=== PATIENT | female | born 1950 | race Caucasian/White ===

== ENCOUNTER → 2018-01-07 | Outpatient (CLI) | payer MEDICARE ==
[~2018-01-07] MED LIST: AMITRIPTYLINE H25 MG PO; LISINOPRIL10 MG PO; OXYBUTYNIN CHLOR5 MG PO; SIMVASTATIN40 MG PO; [UNRECOGNIZED DRUG - OTHER] PO
[2018-01-07 13:35] LABS: BASOPHILS # (AUTO) 0.1 (0.0-0.1); BASOPHILS % 0.7 % (0.0-1.0); EOSINOPHILS # (AUTO) 0.1 (0.0-0.4); EOSINOPHILS % 1.2 % (0.0-6.0); HEMOGLOBIN 11.1 g/dL (12.0-16.0); LYMPHOCYTES # (AUTO) 1.9 (1.0-3.2); LYMPHOCYTES % 23.5 % (18.0-39.1); MEAN CORPUSCULAR HEMOGLOBIN 29.1 pg (28-32); MEAN CORPUSCULAR HGB CONC 33.6 g/dL (31-35); MEAN CORPUSCULAR VOLUME 86.6 fL (81-99); MONOCYTES # (AUTO) 0.4 (0.2-0.8); MONOCYTES % 5.5 % (4.4-11.3); NEUTROPHILS # (AUTO) 5.5 (2.1-6.9); NEUTROPHILS % 68.6 % (38.7-80.0); PLATELET COUNT 193 x10e3/uL (140-360); RED BLOOD COUNT 3.81 x10e6/uL (3.6-5.1); RED CELL DISTRIBUTION WIDTH 14.6 % (11.7-14.4)
== END ==
LOC: DX 13:41 → EDSTATUS 01-09 09:00
PROVIDERS: ATTEND Internal Medicine Gastroenterology
DX: Z01.818 Encounter for other preprocedural examination (principal); Z53.8 Procedure and treatment not carried out for other reasons; Z12.11 Encounter for screening for malignant neoplasm of colon; Z80.0 Family history of malignant neoplasm of digestive organs
CPT/HCPCS: 36415; 85025

== ENCOUNTER → 2018-03-06 | Day surgery (SDC) | payer MEDICARE ==
[2018-03-03 14:43] LABS: BASOPHILS # (AUTO) 0.1 (0.0-0.1); BASOPHILS % 0.6 % (0.0-1.0); EOSINOPHILS # (AUTO) 0.1 (0.0-0.4); EOSINOPHILS % 1.1 % (0.0-6.0); HEMATOCRIT 35.1 % (34.2-44.1); HEMOGLOBIN 11.9 g/dL (12.0-16.0); LYMPHOCYTES # (AUTO) 1.7 (1.0-3.2); LYMPHOCYTES % 20.5 % (18.0-39.1); MEAN CORPUSCULAR HEMOGLOBIN 29.1 pg (28-32); MEAN CORPUSCULAR HGB CONC 33.9 g/dL (31-35); MEAN CORPUSCULAR VOLUME 85.8 fL (81-99); MONOCYTES # (AUTO) 0.5 (0.2-0.8); MONOCYTES % 5.7 % (4.4-11.3); NEUTROPHILS # (AUTO) 5.8 (2.1-6.9); NEUTROPHILS % 71.7 % (38.7-80.0); PLATELET COUNT 219 x10e3/uL (140-360); RED BLOOD COUNT 4.09 x10e6/uL (3.6-5.1); RED CELL DISTRIBUTION WIDTH 13.2 % (11.7-14.4)
[~2018-03-06] MED LIST changes: +EPHEDRINE SULFATE INJ 50 MG/10 ML SYR ONE; +FENTANYL CITRATE/PF 100MCG/2 ML INJ ONE; +HYOSCYAMINE SULFATE 0.5 MG/ML AMP ONE; +LIDOCAINE HCL 2% LOCAL INJ 5 ML SDV VIAL INJ ONE; +MIDAZOLAM HCL 2 MG/2 ML VIAL ONE; +PROPOFOL IV EMULSION 10 MG/ML 50 ML VIAL ONE
--- OUTSIDE RECORDS SUMMARY | 2018-03-06 06:06 | XMS REPORT ---
Author [facility] Address Unknown Phone Unavailable Care Team Providers Care Strategic Partnership Manager Name Role Phone Unavailable Unavailable Problems This patient has no known problems. Allergies, Adverse Reactions, Alerts This patient has no known allergies or adverse reactions. Medications This patient has no known medications. Encounters Start Date/Time End Date/Time Encounter Type Admission Type Attending [facility] Facility Care Department Encounter ID 2018-03-31 00:00:00 2018-03-31 00:00:00 Outpatient [facility] [id number] 2018-03-20 00:00:00 2018-03-20 00:00:00 Outpatient [facility] [id number] 2018-02-25 00:00:00 2018-02-25 00:00:00 Outpatient [facility] [id number] 2018-02-06 00:00:00 2018-02-06 00:00:00 Outpatient [facility] [id number] 2018-01-28 11:16:26 2018-01-28 11:16:26 Outpatient [facility] [id number] 2018-01-27 00:00:00 2018-01-27 00:00:00 Outpatient [facility] [id number] 2018-01-16 00:00:00 2018-01-16 00:00:00 Outpatient [facility] [id number] 2018-01-12 00:00:00 2018-01-12 00:00:00 Outpatient [facility] [id number] 2018-01-07 16:20:06 2018-01-07 16:20:06 Outpatient [facility] [id number] 2018-01-05 14:33:06 2018-01-05 14:33:06 Outpatient [facility] [id number] 2018-01-02 15:31:01 2018-01-02 15:31:01 Outpatient [facility] [id number] 2017-12-29 15:04:24 2017-12-29 15:04:24 Outpatient [facility] [id number] 2017-12-26 00:00:00 2017-12-26 00:00:00 Outpatient [facility] [id number] 2017-11-14 09:21:13 2017-11-14 09:21:13 Outpatient [facility] [id number] 2017-11-12 00:00:00 2017-11-12 00:00:00 Outpatient [facility] [id number] 2017-11-05 00:00:00 2017-11-05 00:00:00 Outpatient [facility] [id number] 2017-10-31 00:00:00 2017-10-31 00:00:00 Outpatient [facility] [id number] 2017-09-23 09:32:44 2017-09-23 09:32:44 Outpatient [facility] [id number] 2017-09-02 00:00:00 2017-09-02 00:00:00 Outpatient [facility] [id number] 2017-09-01 12:54:11 2017-09-01 12:54:11 Outpatient [facility] [id number] 2017-08-06 10:00:03 2017-08-06 10:00:03 Outpatient [facility] [id number] 2017-08-06 00:00:00 2017-08-06 00:00:00 Outpatient [facility] [id number] 2017-08-05 13:07:30 2017-08-05 13:07:30 Outpatient [facility] [id number] 2017-08-04 15:19:24 2017-08-04 15:19:24 Outpatient [facility] [id number] 2017-07-29 05:30:00 2017-07-29 05:30:00 Outpatient [facility] [id number] 2017-07-29 00:00:00 2017-07-29 00:00:00 Outpatient [facility] [id number] 2017-07-24 10:02:05 2017-07-24 10:02:05 Outpatient [facility] [id number] 2017-07-22 11:07:07 2017-07-22 11:07:07 Outpatient [facility] [id number] 2017-07-22 00:00:00 2017-07-22 00:00:00 Outpatient [facility] [id number] 2017-07-17 08:54:39 2017-07-17 08:54:39 Outpatient [facility] [id number] 2017-07-16 11:22:46 2017-07-16 11:22:46 Outpatient [facility] [id number] 2017-07-16 00:00:00 2017-07-16 00:00:00 Outpatient [facility] [id number] 2017-06-26 00:00:00 2017-06-26 00:00:00 Outpatient [facility] [id number] 2017-06-20 00:00:00 2017-06-20 00:00:00 Outpatient [facility] [id number] 2017-06-12 00:00:00 2017-06-12 00:00:00 Outpatient [facility] [id number] 2017-05-06 13:18:27 2017-05-06 13:18:27 Outpatient [facility] [id number]
--- NOTE | 2018-03-06 09:44 | Operative Report ---
DATE OF PROCEDURE: March 06, 2018 REFERRING PHYSICIAN: Dr. Nico Al PROCEDURE PERFORMED: Colonoscopy and polypectomy with biopsies. INDICATIONS FOR COLONOSCOPY: Colorectal cancer screening and chronic diarrhea. MEDICATION: Patient was done under MAC. Please see anesthesiologist's note. PROCEDURE: With the patient in the left lateral decubitus position, the flexible fiberoptic Olympus colonoscope was inserted into the rectum with ease and advanced all the way to the cecum. Mucosa overlying the cecum appeared to be within normal limits. The ileocecal valve was intubated and the scope was advanced into the terminal ileum. Biopsies were obtained. The scope was then withdrawn back into the colon. It was then withdrawn slowly and a 1 polyp was hot biopsied and 1 polyp was snared from the ascending colon. The mucosa overlying the ascending, transverse, descending, and sigmoid revealed some patchy and mild inflammatory changes. Multiple random biopsies were obtained. Two polyps were snared from the sigmoid colon. The scope was then retroflexed into the distal rectum and small internal hemorrhoids were noted, none of which was actively bleeding. The scope was then straightened out. It was subsequently withdrawn after securing an adequate stool specimen that was sent for the appropriate stool studies. Patient tolerated the procedure well. IMPRESSION 1. Mild patchy colitis. 2. Ascending colon polyps times 2, one snared and one hot biopsied. 3. Sigmoid colon polyps times 2, snared. 4. Internal hemorrhoids, none actively bleeding. PLAN: Follow up histology. Follow up stool studies. Initiate Bentyl 10 mg 1 p.o. t.i.d. VSL #3 DS 1 p.o. daily. Job#: [id number] RI cc:NICO AL MD
[2018-03-06 11:38] LABS: C DIFFICILE TOXIN A&B AMP PROB NEGATIVE (NEGATIVE); WBC,FECAL (FECAL LACTOFERRIN) NEGATIVE (NEGATIVE)
== END | disposition home or self-care (01) ==
LOC: OR 06:04
PROVIDERS: ATTEND Internal Medicine Gastroenterology
DX: K52.9 Noninfective gastroenteritis and colitis, unspecified (principal); D12.2 Benign neoplasm of ascending colon; D12.5 Benign neoplasm of sigmoid colon; K64.8 Other hemorrhoids; K63.5 Polyp of colon; Z01.812 Encounter for preprocedural laboratory examination; I10 Essential (primary) hypertension; J44.9 Chronic obstructive pulmonary disease, unspecified; F41.8 Other specified anxiety disorders; E78.5 Hyperlipidemia, unspecified; I25.10 Atherosclerotic heart disease of native coronary artery without angina pectoris; Z95.5 Presence of coronary angioplasty implant and graft; G47.33 Obstructive sleep apnea (adult) (pediatric); Z95.0 Presence of cardiac pacemaker; I25.2 Old myocardial infarction
CPT/HCPCS: 36415; 45380; 45384; 45385; 83630; 83993; 85025; 87045; 87177; 87328; 87493; 88305; J1980; J2001; J2250; 45378

== ENCOUNTER → 2019-02-20 | Day surgery (SDC) | payer MEDICARE ==
[2019-02-19 12:07] LABS: BASOPHILS # (AUTO) 0.1 (0.0-0.1); BASOPHILS % 0.7 % (0.0-1.0); EOSINOPHILS # (AUTO) 0.1 (0.0-0.4); HEMATOCRIT 40.1 % (34.2-44.1); HEMOGLOBIN 13.1 g/dL (12.0-16.0); LYMPHOCYTES % 27.6 % (18.0-39.1); MEAN CORPUSCULAR HEMOGLOBIN 29.8 pg (28-32); MEAN CORPUSCULAR HGB CONC 32.7 g/dL (31-35); MEAN CORPUSCULAR VOLUME 91.1 fL (81-99); MONOCYTES # (AUTO) 0.5 (0.2-0.8); MONOCYTES % 6.4 % (4.4-11.3); NEUTROPHILS # (AUTO) 4.6 (2.1-6.9); NEUTROPHILS % 63.9 % (38.7-80.0); PLATELET COUNT 229 x10e3/uL (140-360); RED CELL DISTRIBUTION WIDTH 13.2 % (11.7-14.4)
[~2019-02-20] MED LIST changes: +ASPIR 8181 MG PO; +ATORVASTATIN CA10 MG PO; +DETROL LA4 MG PO; +DICYCLOMINE HCL10 MG PO; -EPHEDRINE SULFATE INJ 50 MG/10 ML SYR ONE; -HYOSCYAMINE SULFATE 0.5 MG/ML AMP ONE; +KLOR-CON 1010 MEQ PO; +LISINOPRIL2.5 MG PO; +MAGNESIUM OXID400 MG PO; +METOPROLOL SUCC25 MG PO; +ZOLOFT50 MG PO
[2019-02-20 08:18] VITALS: BP 124/67
--- NOTE | 2019-02-20 10:59 | Operative Report ---
DATE OF PROCEDURE: 02/20/2019 SURGEON: Brock Wyatt MD PROCEDURE: Esophagogastroduodenoscopy with esophageal dilatation and biopsies. INDICATIONS FOR EGD: Dysphagia. MEDICATIONS: The patient was done under MAC, please see anesthesiologist's note. PROCEDURE IN DETAIL: With the patient in left lateral decubitus position, a flexible fiberoptic Olympus gastroscope was introduced into the esophagus under direct visualization without any difficulty. There was some patchy erythema noted in distal esophagus. Minute tongue of velvety red mucosa was noted to extend proximally from the GE junction that was biopsied. Biopsies were obtained to rule out Berrios. Esophagus was then dilated to size 52-[place]. The scope was then advanced with ease into the stomach traversing a small sliding hiatal hernia. Mucosa overlying the antrum and the body revealed some patchy intense erythema and moderate edema and biopsies were obtained and sent to stain for H pylori. The pylorus was of normal contour and shape, it was intubated with ease and the scope was advanced all the way to the second portion of the duodenum. The scope was then withdrawn slowly and the mucosa overlying the proximal second portion and duodenal bulb was biopsied to rule out sprue. The scope was then withdrawn back into the stomach and retroflexed, mucosa overlying the fundus and cardia appeared to be within normal limits. The previously described hiatal hernia was also noted in the retroflexed position. The scope was then straightened out, it was subsequently withdrawn. The patient tolerated the procedure well. IMPRESSION: 1. Distal esophagitis, mild. 2. Rule out Berrios esophagus. 3. Esophagus dilated to size 52-[place] Baldwin. 4. Small sliding hiatal hernia. 5. Gastritis, biopsied. Biopsies sent to stain for Helicobacter pylori. 6. Rule out sprue. PLAN: Follow up histology. Initiate Protonix 40 mg one p.o. q.a.m. a.c. Brock Wyatt MD [facility] [place] /[id number] cc: Javon Wyatt MD
--- OUTSIDE RECORDS SUMMARY | 2019-02-22 10:55 | XMS REPORT | Clinical Summary ---
Author Author [facility] Organization [facility] Address Unknown Phone Unavailable Care Team Providers Care Service Agent Name Role Phone Bhupinder Monique MD PCP Allergies No Known Allergies Medications End Date Status Medication Sig Dispensed Refills Start Date Active aspirin (MALIK CHEWABLE Chew and 0 ASPIRIN) 81 mg chewable swallow 81 mg tablet by mouth daily. Active ketoconazole (NIZORAL) 2 Apply to 30 g 8 % topical affected area 7 creamIndications: 2 times daily Seborrhea For rash on face. Mix with hydrocortison e cream.. Active hydrocortisone 2.5 % Apply to 20 g 8 topical creamIndications: affected area 7 Seborrhea 2 times daily For rash on face. Mix with ketoconazole cream.. Active polyethylene glycol Add lukewarm 4000 mL 0 (GOLYTELY) [id number] drinking 7 -5.86 gram oral water to the solutionIndications: fill ajay (4 Family history of colon liters) and cancer shake. Drink as directed by your doctor.. Active metoprolol tartrate Take 0.5 90 tablet 3 (LOPRESSOR) 25 mg tablets by 7 tabletIndications: mouth 2 times Coronary artery disease daily. involving [place] heart without angina pectoris, unspecified vessel or lesion type Active chlorhexidine (PERIDEX) Swish with 473 mL 0 0.12 % mouth wash 1/2 oz of 7 solution in mouth for 30 seconds and spit. Use twice daily.. Active lisinopril (PRINIVIL, Take 1 tablet 90 tablet 3 ZESTRIL) 20 mg tablet by mouth 7 daily. Active sertraline (ZOLOFT) 50 mg Take 1/2 30 tablet 2 tabletIndications: LINDA tablet by 8 (generalized anxiety mouth daily disorder) for 2 weeks, then take 1 tablet daily. Active atorvastatin (LIPITOR) 80 Take 1 tablet 90 tablet 1 mg tabletIndications: S/P by mouth at 8 percutaneous transluminal bedtime coronary angioplasty nightly. Active ticagrelor (BRILINTA) 90 Take 1 tablet 180 tablet 1 mg tabletIndications: S/P by mouth 2 8 percutaneous transluminal times daily. coronary angioplasty Active traZODone (DESYREL) 50 mg Take 1/2 to 2 60 tablet 2 tabletIndications: tablets by 8 Insomnia, unspecified mouth nightly type at bedtime as needed for Sleep. Active Estradiol (ESTRING) 2 mg Insert 1 ring 1 Each 11 (7.5 mcg /24 hour) vaginally 8 vaginal ringIndications: every 90 Mixed incontinence days. Active solifenacin (VESICARE) 5 Take 1 tablet 30 tablet 3 mg tabletIndications: by mouth 8 Urge incontinence of daily. urine 03/13/2018 Discontinued traZODone (DESYREL) 50 mg Take 1/2 to 2 60 tablet 2 tabletIndications: tablets by 8 Insomnia, unspecified mouth nightly type at bedtime as needed for Sleep. 06/10/2018 Discontinued oxybutynin (DITROPAN) 5 Take 1 tablet 180 tablet 0 mg tabletIndications: by mouth 2 8 Mixed incontinence times daily Please see MD for future refills. 06/05/2018 Discontinued Estradiol (ESTRING) 2 mg Insert 1 Each 0 (7.5 mcg /24 hour) vaginally 8 vaginal ringIndications: every 90 Mixed incontinence days. 06/08/2018 Discontinued Estradiol (ESTRING) 2 mg Insert 1 ring 1 Each 0 (7.5 mcg /24 hour) vaginally 8 vaginal ringIndications: every 90 Mixed incontinence days. 08/26/2018 Discontinued oxybutynin (DITROPAN) 5 Take 1 tablet 180 tablet 1 mg tabletIndications: by mouth 2 8 Mixed incontinence times daily. 08/26/2018 Discontinued solifenacin (VESICARE) 5 Take 1 tablet 30 tablet 1 08/27/201 mg tabletIndications: by mouth 8 Urge incontinence of daily. urine Active Problems Problem Noted Date Urge incontinence 07/29/2018 COPD (chronic obstructive pulmonary disease) 06/04/2018 Overview: Managed by internal medicine Depression 06/04/2018 Overview: On amytriptyline, reports mood stable. Will follow up with PCP for treatment for anxiety Tobacco abuse 06/04/2018 Overview: Using 3 cigarettes a day, reports decreasing usage Advised to continue Essential hypertension 09/12/2016 Overview: Normotensive today, on lisinopril 10 mg Coronary artery disease 09/12/2016 Overview: H/o UT x4, with stents and currently pacer in place Followed by cardiology Resolved Problems Problem Noted Date Resolved Date Edentulism, complete, class I edentulism 04/27/2018 06/04/2018 Periodontitis 07/17/2017 06/04/2018 Overview: Added automatically from request for surgery [id number] Caries 07/17/2017 06/04/2018 Overview: Added automatically from request for surgery [id number] Nuclear sclerotic cataract of both eyes 05/06/2017 06/04/2018 S/P percutaneous transluminal coronary angioplasty 01/09/2017 06/04/2018 Cigarette smoker motivated to quit 12/03/2016 06/04/2018 Cigarette smoker 09/12/2016 06/04/2018 Mixed hyperlipidemia 09/12/2016 06/04/2018 Mixed incontinence 09/12/2016 07/29/2018 Overview: Patein with history of mostly urge incontinence, on oxybutin x 10 years /06/04/2018: Family history of colon cancer 09/12/2016 06/04/2018 Abnormal stress test 06/04/2018 SOB (shortness of breath) 06/04/2018 Encounters Care Team Description Date Type Specialty Patricia Dao DMD Edentulism, complete, class I edentulism (Primary Dx) 02/05/2019 Office Visit Dentistry 02/05/2019 Patricia Kumar DMD Edentulism, complete, class I edentulism (Primary Dx) 01/18/2019 Office Visit Dentistry Patricia Dao DMD Edentulism, complete, class I edentulism (Primary Dx) 12/28/2018 Office Visit Dentistry 12/28/2018 Patricia Kumar DMD Edentulism, complete, class I edentulism (Primary Dx) 11/25/2018 Office Visit Dentistry Patricia Dao, ÁNGEL Edentulism, complete, class I edentulism (Primary Dx) 11/11/2018 Office Visit Dentistry 11/11/2018 Travel Abigail Marti MD Jalloul, Randa J, MD Urge incontinence of urine 08/26/2018 Office Visit Gynecology Bhupinder Monique MD 08/06/2018 Hospital Radiology Encounter Estephania Villalpando MD Urge incontinence (Primary Dx) 07/29/2018 Office Visit Gynecology Murphy Caal MD Mixed incontinence (Primary Dx); Urge incontinence of urine 06/22/2018 Office Visit Gynecology Bhupinder Monique MD Mixed incontinence 06/10/2018 Refill Family Practice Marcello Gilliam MD Mixed incontinence 06/08/2018 Orders Only Gynecology Bhupinder Monique MD Mixed incontinence 06/05/2018 Hospital Radiology Encounter Marcello Gilliam MD Mixed incontinence 06/05/2018 Refill Gynecology Marcello Gilliam MD Mixed incontinence (Primary Dx); Essential hypertension; Coronary artery disease involving [place] coronary artery of [place] heart without angina pectoris; Chronic obstructive pulmonary disease, unspecified COPD type; Recurrent major depressive disorder, in remission; Tobacco abuse 06/04/2018 Office Visit Gynecology Patricia Dao, ÁNGEL Moises Saenz Ronaldo Morales, ÁNGEL Edentulism, complete, class I edentulism (Primary Dx) 04/27/2018 Office Visit Dentistry Azar Tan MD Insomnia, unspecified type 03/13/2018 Refill Psychiatry Azar Tan MD LINDA (generalized anxiety disorder) 03/02/2018 Refill Psychiatry after 02/21/2018 Immunizations Name Dates Previously Given Next Due Influenza Vaccine 09/12/2016 Influenza Vaccine, 09/01/2017 Seasonal, Injectable PCV 13 (Pnuemococcal 01/28/2018 (Deferred: Other - per MD will give at Conjugated 13 Valent) next clinic visit.) PPV 23 (Pneumococcal 01/09/2017 Polysaccharide 23 Valent) Tdap Tetanus, diphtheria, 09/30/2016 acellular pertussis Vaccine Family History Medical History Relation Name Comments Leukemia Brother Diabetes Father Heart Father heart problems in his 30's and of [place] at age 70's Cancer Mother colon Diabetes Sister Psychiatry Sister Diabetes Sister Relation Name Status Comments Brother Daughter Alive Daughter Alive Daughter Alive Father Maternal Grandfather Maternal Grandmother Mother Paternal Grandfather Paternal Grandmother Sister Alive Sister Alive Sister Alive Sister Alive Social History Date Tobacco Use Types Packs/Day Years Used Current Every Day Smoker 0.1 Smokeless Tobacco: Current User Tobacco Cessation: Ready to Quit: No; Counseling Given: No Comments: x 30 yrs Alcohol Use Drinks/Week oz/Week Comments No does not drink Sex Assigned at Date Recorded Not on file Industry Job Start Date Occupation Not on file Not on file Not on file Travel End Travel History Travel Start No recent travel history available. Last Filed Vital Signs Time Taken Vital Sign Reading 02/05/2019 12:08 PM CDT Blood Pressure 145/93 02/05/2019 12:08 PM CDT Pulse 62 08/26/2018 9:48 AM CDT Temperature 36.5 C (97.7 F) 08/26/2018 9:48 AM CDT Respiratory Rate 18 - Oxygen Saturation - - Inhaled Oxygen - Concentration 08/26/2018 9:48 AM CDT Weight 77.9 kg (171 lb 12.8 oz) 08/26/2018 9:48 AM CDT Height 160 cm (5' 3") 08/26/2018 9:48 AM CDT Body Mass Index 30.43 Plan of Treatment Health Maintenance Due Date Last Done Comments IMM Pneumococcal Age 65 2017 and Up Colorectal Cancer Scrn 10/07/2017 10/07/2016 Annual (FIT/FOBT) Age 50 to 75 CORONARY ARTERY DISEASE 07/16/2018 07/16/2017, 12/23/2016, 10/22/2016 AGE 18 AND UP IMM Influenza Seasonal 07/27/2019 09/01/2017 Oct to December (>/=19 yrs) Breast Cancer Scrn 08/06/2019 08/06/2018, 10/30/2016 (Yearly) Goals Goal Patient Associated Recent Progress Patient-Stat Author Goal Type Problems ed? Quit smoking / using tobacco Lifestyle No Stephani Alamo Quit smoking / using tobacco Lifestyle No Bhupinder Monique MD Weight (lb) < 200 lb (90.7 kg) Weight 77.9 kg (171 lb 12.8 No Stephani Alamo oz) (08/26/2018 J 9:48 AM CDT) Procedures Comments Procedure Name Priority Date/Time Associated Diagnosis MAMMOGRAM BILAT SCREEN Routine 08/06/2018 Physical exam, annual DIGITAL 9:53 AM CDT URINE CULTURE Routine 06/22/2018 Mixed incontinence 3:39 PM CDT BONE DENSITY (DUAL Routine 06/05/2018 Mixed incontinence PHOTON) 9:36 AM CDT URINE CULTURE Routine 06/04/2018 Mixed incontinence 2:51 PM CDT after 02/21/2018 Results * MAMMOGRAM BILAT SCREEN DIGITAL (08/06/2018 9:53 AM CDT) Impressions Performed At IMPRESSION: BENIGN SMS There is no mammographic evidence of malignancy. A 1 year screening mammogram is recommended. This document has been electronically signed. Vincent Lao M.D. [facility]/:08/06/2018 09:38:01 Deli Cutter Slicer: Frank Moura [facility] letter sent: Mammography Normal Mammogram BI-RADS: 2 Benign G0202 z12.31 Narrative Performed At #[id number] - MAMMOGRAM BILAT SCREEN DIGITAL SMS BILATERAL DIGITAL SCREENING MAMMOGRAM 3D/2D WITH CAD: 08/06/2018 CLINICAL: Screening. Comparison is made to exam dated:10/30/2016 [facility]. There are scattered fibroglandular elements in both breasts that could obscure a lesion on mammography. Tomosynthesis was used. Current study was also evaluated with a Computer Aided Detection (CAD) system. There are benign calcifications in both breasts.There also is a biopsy clip in the left breast. No significant masses, calcifications, or other findings are seen in either breast. There has been no significant interval change. Procedure Note Interface, Rad/Mammog In - 08/06/2018 11:30 AM CDT #[id number] - MAMMOGRAM BILAT SCREEN DIGITAL BILATERAL DIGITAL SCREENING MAMMOGRAM 3D/2D WITH CAD: 08/06/2018 CLINICAL: Screening. Comparison is made to exam dated: 10/30/2016 [facility]. There are scattered fibroglandular elements in both breasts that could obscure a lesion on mammography. Tomosynthesis was used. Current study was also evaluated with a Computer Aided Detection (CAD) system. There are benign calcifications in both breasts. There also is a biopsy clip in the left breast. No significant masses, calcifications, or other findings are seen in either breast. There has been no significant interval change. IMPRESSION IMPRESSION: BENIGN There is no mammographic evidence of malignancy. A 1 year screening mammogram is recommended. This document has been electronically signed. Vincent Lao M.D. [facility]/:08/06/2018 09:38:01 Deli Cutter Slicer: Frank Moura [facility] letter sent: Mammography Normal Mammogram BI-RADS: 2 Benign G0202 z12.31 Performing Organization Address City/State/Zipcode Phone Number SMS * URINE CULTURE (06/22/2018 3:39 PM CDT) Only the most recent of 2 results within the time period is included. Spec Clean catch urine [facility] Description MICROBIOLOGY Order Comments None [facility] MICROBIOLOGY Culture No growth 1 day BT MICROBIOLOGY Report Status Final 06/25/2018 [facility] MICROBIOLOGY Specimen Urine clean catch - CLEAN CATCH URINE Performing Organization Address [facility] Phone Number MISYS [facility] MICROBIOLOGY [facility] MICROBIOLOGY * BONE DENSITY (DUAL PHOTON) (06/05/2018 9:36 AM CDT) Impressions Performed At IMPRESSION: SMS Osteopenia of the lumbar spine, femoral neck and hip which increase the risk of fracture. Dictated By: Eyad Reyes MD, 06/05/2018 9:50 AM I have reviewed the study and agree with the findings in this report. Signed By: Valerie Huang MD, 06/05/2018 9:55 AM Narrative Performed At EXAM: DEXA SMS INDICATION: Bone mineral density screening TECHNIQUE: The patient underwent bone mineral densitometry using [employer] Discovery SL dual energy x-ray absorptiometry (DEXA).T-score is to compare the female peak bone mineral density (BMD). WHO definition of osteoporosis is T<-2.5 and osteopenia is T <-1.0. FINDINGS: Region...........BMD.....T score Spine L1-4....... 0.919 ..... -1.2 Femoral Neck..... 0.661 ..... -1.7 Total hip........ 0.706 ..... -1.9 Procedure Note Interface, Rad/Mammog In - 06/05/2018 10:00 AM CDT EXAM: DEXA INDICATION: Bone mineral density screening TECHNIQUE: The patient underwent bone mineral densitometry using [employer] Discovery SL dual energy x-ray absorptiometry (DEXA). T-score is to compare the female peak bone mineral density (BMD). WHO definition of osteoporosis is T<-2.5 and osteopenia is T <-1.0. FINDINGS: Region...........BMD.....T score Spine L1-4....... 0.919 ..... -1.2 Femoral Neck..... 0.661 ..... -1.7 Total hip........ 0.706 ..... -1.9 IMPRESSION IMPRESSION: Osteopenia of the lumbar spine, femoral neck and hip which increase the risk of fracture. Dictated By: Eyad Reyes MD, 06/05/2018 9:50 AM I have reviewed the study and agree with the findings in this report. Signed By: Valerie Huang MD, 06/05/2018 9:55 AM Performing Organization Address City/State/Zipcode Phone Number SMS after 02/21/2018 Insurance Type Payer Benefit Subscriber ID Effective Phone Address Plan / Dates Group MEDICARE MEDICARE xxxxxxxxxxx 2017- [phone] Present [address] [place] [address] [place] MED[place] [id number] xxxxxxxxx 2017- [phone] QUAL[address] Present [id number] MEDICARE [place], [place] BENEFICIAR [id number] Y Advance Directives For more information, please contact: [address] [address] Date Inactivated Comments Code Status Date Activated 01/11/2017 3:05 PM Allow Natural 01/09/2017 4:58 PM 01/09/2017 4:58 PM Full Code 01/09/2017 8:31 AM
--- OUTSIDE RECORDS SUMMARY | 2019-02-22 10:56 | XMS REPORT | Summary of Care ---
Author Author [facility], [facility] Organization Unknown Address Unknown Phone Unavailable Care Team Providers Care Porcelain Technician Name Role Phone TAMARA MURILLO M.D. Unavailable Unavailable KALEIGH LEDBETTER MD Unavailable Unavailable Functional Status Name Dates Details Functional status health issues are not documented Status: Name Dates Details Cognitive status health issues are not documented Status: Problems Name Dates Details No active medical problems Status: Active Medications Name Dates Details Lisinopril 20 MG Oral Tablet TAKE 1 AND 1/2 TABLETS DAILY. Active 15 Tablet Bottle Amitriptyline HCl - 25 MG Oral Tablet TAKE 1 TABLET DAILY DIRECTED. * Refills: 0 Active Zocor 40 MG Oral Tablet * Refills: 0 Active Coreg 3.125 MG Oral Tablet TAKE 1 TABLET TWICE DAILY, WITH MORNING AND EVENING MEAL * Refills: 0 Active Dicyclomine HCl - 10 MG Oral Capsule Take 1 tablet twice a day * Refills: 0 Active Allergies and Adverse Reactions Name Dates Details No Known Allergies (Allergy) Status: Active Procedures Procedure Dates Details Procedures not documented Immunization Name Dates Details Immunizations not documented Family History Name Dates Details No pertinent family history (V49.89, Z78.9) Status: Active Social History Name Dates Details - Status: Name Dates Details Former smoker Vital Signs Date Test Result Details 01-May-20189:45 BP Systolic 111 mm[Hg] Status: Comments: Location: RUE; Position: Sitting BP Diastolic 72 mm[Hg] Status: Comments: Location: RUE; Position: Sitting Weight 161.375 lb Status: Height 64 in Status: Body Mass Index Calculated 27.7 kg/m2 Status: Body Surface Area Calculated 1.79 m2 Status: Heart Rate 67 /min Status: Comments: Location: R Brachial Artery; Quality: Normal Respiration Rate 18 /min Status: Comments: Quality: Normal Physical Findings 0 Status: Comments: Pain Scale Results Date Description Value Details Results not documented Plan of Care Name Dates Details Planned Observations Planned Goals not documented Instructions Name Dates Details Instructions not documented Encounters Appointment; MURILLO, JAYESHKUMAR, M.D. Encounter Diagnosis: Problem not documented On: 01-May-2018 9:45
== END | disposition home or self-care (01) ==
LOC: OR 05:50
PROVIDERS: ATTEND Internal Medicine Gastroenterology
DX: K52.89 Other specified noninfective gastroenteritis and colitis (principal); K21.0 Gastro-esophageal reflux disease with esophagitis; K22.2 Esophageal obstruction; K44.9 Diaphragmatic hernia without obstruction or gangrene; K29.70 Gastritis, unspecified, without bleeding; R13.19 Other dysphagia; I10 Essential (primary) hypertension; Z92.29 Personal history of other drug therapy; Z95.5 Presence of coronary angioplasty implant and graft; Z95.0 Presence of cardiac pacemaker; E78.00 Pure hypercholesterolemia, unspecified; I25.2 Old myocardial infarction; Z80.0 Family history of malignant neoplasm of digestive organs; Z72.0 Tobacco use
CPT/HCPCS: 36415; 43239; 43450; 85025; 88305; 88312; 93005; J2001; J2250; J2704

== ENCOUNTER → 2019-07-08 | Outpatient (CLI) | payer MEDICARE ==
[~2019-07-08] MED LIST changes: -FENTANYL CITRATE/PF 100MCG/2 ML INJ ONE; -LIDOCAINE HCL 2% LOCAL INJ 5 ML SDV VIAL INJ ONE; -MIDAZOLAM HCL 2 MG/2 ML VIAL ONE; -PROPOFOL IV EMULSION 10 MG/ML 50 ML VIAL ONE
--- NOTE | 2019-07-09 09:15 | Diagnostic Imaging Report ---
Bone density study Clinical History: Menopause Bone mineral density measurement Lumbar spine 0.967 gm/cm2 Femoral neck 0.6 x 4 gm/cm2 Standard deviation from young adult population (T-score) Lumbar spine -0.7 Femoral neck -2.4 Standard deviation for age adjusted population (Z-score) Lumbar spine 1.2 Femoral neck -1.0 Comments: The alignment of lumbar spine and femoral necks are satisfactory. There is osteopenia of the femoral neck. Complete computer analysis will be sent shortly. Diagnostic criteria for osteoporosis BMD: Bone mineral density Normal: BMD measurement less than one standard deviation from young adult population Osteopenia: BMD measurement between 1 and 2.5 standard deviations Osteoporosis: BMD measurement greater than 2.5 standard deviations Severe osteoporosis: Osteoporosis and one or more fragility fractures Signed by: Dr. Jourdan Guzman MD on 07/09/2019 9:12 AM
--- NOTE | 2019-07-16 09:41 | Diagnostic Imaging Report ---
#[id number] - MGSCRBIL #BILATERAL DIGITAL SCREENING MAMMOGRAM WITH CAD: 07/08/2019 CLINICAL: Routine screening. Comparison is made to exams dated: 11/24/2012 mammogram and 11/02/2012 mammogram - [facility]. Current study contains 4 films. The tissue of both breasts is predominantly fatty. Current study was also evaluated with a Computer Aided Detection (CAD) system. Benign appearing calcifications are noted bilaterally. A clip is noted in the left breast. No significant masses, calcifications, or other findings are seen in either breast. IMPRESSION: BENIGN There is no mammographic evidence of malignancy. A 1 year screening mammogram is recommended. The patient will be notified by letter of the results. DANIEL IRIZARRY M.D. ct/penrad:07/15/2019 17:07:44 [employer]vac Sales Representative: Paola NAIDU)(Alissa), [facility] letter sent: Normal Exam Mammogram BI-RADS: 2 Benign
== END ==
LOC: MAMMO 12:09
DX: Z12.31 Encounter for screening mammogram for malignant neoplasm of breast (principal); M89.9 Disorder of bone, unspecified
CPT/HCPCS: 77067; 77080

== ENCOUNTER → 2021-02-12 | Outpatient (CLI) | payer MEDICARE | LOC: RAD 15:26 → EDSTATUS 15:26 | DX: R06.02 Shortness of breath (principal) | CPT/HCPCS: 71046 ==